=== PATIENT | female | born 1960 | race Caucasian/White ===

== ENCOUNTER 2017-08-25 09:52 | Day surgery (SDC) | payer BC ==
[2017-08-24 11:31] VITALS: BMI 35.6
[2017-08-25 10:58] VITALS: TEMP 97.5
[2017-08-25 12:23] VITALS: BP 146/81; PULSE 61
--- NOTE | 2017-08-28 13:12 | PATH ---
Surgical Pathology Report Patient Name: ANAHI CARTER [facility]. Rec. #: [id number] /Age/Gender: 1960 (Age: 56) / F Account: [id number] Location: U-ENDOSCOPY Taken: 08/25/2017 Received: 08/25/2017 Reported: 08/28/2017 Physicians: Bon Hernandez M.D. Specimen(s) Received A: BX 2ND PORTION DUODENUM B: BX ANTRUM Clinical History Preoperative diagnosis: Iron deficiency anemia Postoperative diagnosis: Gastritis, diverticulosis Final Diagnosis A. DUODENUM, SECOND PORTION/BULB, BIOPSY: DUODENAL MUCOSA WITHOUT SIGNIFICANT PATHOLOGIC FINDINGS. NO EVIDENCE OF CELIC DISEASE B. STOMACH, ANTRUM, BIOPSY: GASTRIC ANTRAL MUCOSA WITH MODERATE CHRONIC FOCAL ACTIVE GASTRITIS. IMMUNOHISTOCHEMICAL STAIN FOR H. PYLORI IS NEGATIVE. Electronically Signed Erika Márquez M.D. Gross Description A. Received in formalin, labeled "biopsy second portion of duodenum" are 4 womack, irregular portions of soft tissue ranging from 0.2-0.4 cm. in greatest dimension. The specimens are submitted in toto in one cassette. B. Received in formalin, labeled "biopsy antrum" are 3 womack, irregular portions of soft tissue ranging from 0.2-0.3 cm. in greatest dimension. The specimens are submitted in toto in one cassette. 08/25/201708/25/2017
== END 2017-08-25 12:24 | disposition home or self-care (01) ==
LOC: JASU-ENDO 09:52
PROVIDERS: ATTEND Internal Medicine Gastroenterology
PROC: 0DB98ZX Excision of Duodenum, Via Natural or Artificial Opening Endoscopic, Diagnostic (ICD-10-PCS; 2017-08-25)
PROC: 0DB68ZX Excision of Stomach, Via Natural or Artificial Opening Endoscopic, Diagnostic (ICD-10-PCS; 2017-08-25)
PROC: 0DJD8ZZ Inspection of Lower Intestinal Tract, Via Natural or Artificial Opening Endoscopic (ICD-10-PCS; principal; 2017-08-25 10:30)
DX: D50.9 Iron deficiency anemia, unspecified (principal); K57.30 Diverticulosis of large intestine without perforation or abscess without bleeding; K29.70 Gastritis, unspecified, without bleeding; K92.1 Melena
CPT/HCPCS: 88305-TC; 88342-TC

== ENCOUNTER 2024-05-28 05:43 | Emergency (ER) | payer BC ==
[2024-05-28 05:57] VITALS: BP 143/81; PULSE 76; RESP 18; TEMP 97.7; BMI 33.3
== END 2024-05-28 06:28 | disposition home or self-care (01) ==
LOC: JER 05:43
DX: R55 Syncope and collapse (principal); R42 Dizziness and giddiness
CPT/HCPCS: 99283-25